=== PATIENT | male | born 2000 | race Caucasian/White ===

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

== ENCOUNTER 2020-04-26 14:14 | Emergency (ER) | payer OTHER ==
[~2020-04-26] VITALS: Ht 188 cm; Wt 79.4 kg
[~2020-04-26 14:14] MED LIST: ACET-2619 GT; BACL10TA4 GT; CHLO1SOL3; DOCU-299 GT; FAMO-90 GT; LACT1TAB26 GT; LANO454C2 TP; MELA5TAB6 GT; MULT-2112 GT; ROB1 GT; SELE180S6 TP; SENN-72 GT; SODI100076 GT; SUCR1SUS7 GT; ZINC10OI TP
--- NOTE | 2020-04-26 14:17 | NUR ---
PT BIBA AND TAKEN TO BED 7.
[2020-04-26 14:18] VITALS: BP 109/61
--- NOTE | 2020-04-26 14:18 | NUR ---
PT PLACED ON 3 LEAD ECG AND PULSE OX.
--- NOTE | 2020-04-26 14:27 | NUR ---
DR. WALKER AT BEDSIDE EVALUATING PT.
--- NOTE | 2020-04-26 14:30 | NUR ---
MOTHER AT BEDSIDE WITH PT.
--- NOTE | 2020-04-26 14:45 | NUR ---
DR. WALKER AT BEDSIDE SPEAKING WITH MOTHER.
[2020-04-26] MEDS ORDERED: ONDANSETRON 4 MG ODT PO ONE (14:50)
--- NOTE | 2020-04-26 15:03 | NUR ---
LAB AT BEDSIDE.
--- NOTE | 2020-04-26 15:05 | NUR ---
PER MOM. PT WAS GIVEN AMANTIDINE TODAY AFTER HIS PCP RENEWED AND REPRESCRIBED IT YESTERDAY. POSSIBLE SE OF RX, MOM NOTICED PT WAS COLD AND CLAMMY WITH "BLUISH LIPS"
[2020-04-26 15:12] LABS: BASOPHILS % (AUTO) 0.2 % (0.0-2.0); EOSINOPHILS % (AUTO) 0.3 % (0.0-4.0); HEMATOCRIT 44.7 % (36-52); LYMPHOCYTES # (AUTO) 1.3 K/uL (2.0-11.5); LYMPHOCYTES % (AUTO) 13.9 % (20.5-51.1); MEAN CORPUSCULAR HEMOGLOBIN 30 pg (27-31); MEAN CORPUSCULAR HGB CONC 34 g/dL (33-37); MEAN CORPUSCULAR VOLUME 90.2 fL (80-94); MONOCYTES # (AUTO) 0.4 K/uL (0.8-1.0); MONOCYTES % (AUTO) 4.7 % (1.7-9.3); NEUTROPHILS # (AUTO) 7.7 K/uL (1.8-7.7); NEUTROPHILS % (AUTO) 80.9 % (42.2-75.2); PLATELET COUNT (AUTO) 180 K/uL (140-450); RED BLOOD CELL COUNT(AUTO) 4.95 MIL/uL (4.20-6.10); RED CELL DISTRIBUTION WIDTH 12.9 % (11.6-13.7); WHITE BLOOD COUNT (AUTO) 9.5 K/uL (4.5-11.0)
[2020-04-26 15:26] LABS: ANION GAP 12.1 (8-16); CARBON DIOXIDE 30.2 mmol/L (21-32); CREATININE 0.7 mg/dL (0.6-1.3); POTASSIUM 3.3 mmol/L (3.5-5.1); TOTAL BILIRUBIN 0.9 mg/dL (0.0-1.0)
--- NOTE | 2020-04-26 15:47 | NUR ---
DR. WALKER AT BEDSIDE REEVLAUTING PT.
--- NOTE | 2020-04-26 16:00 | NUR ---
KRISTINA AND JESSICA GILBERT SWAB COLLECTED AND GIVEN TO PHLEB.
[2020-04-26 16:20] VITALS: BP 120/55
--- NOTE | 2020-04-26 16:21 | NUR ---
Patient discharged with v/s stable. Written and verbal after care instructions given and explained. Patient verbalized understanding. Wheel Chair Assisted with by parent. All questions addressed prior to discharge. Advised to follow up with PMD.
== END 2020-04-26 16:21 | disposition home or self-care (01) ==
LOC: MED 14:14
DX: T50.905A Adverse effect of unspecified drugs, medicaments and biological substances, initial encounter (principal); Z79.899 Other long term (current) drug therapy
CPT/HCPCS: 36415; 80053; 85025; 99283; Q0162